=== PATIENT | male | born 1980 | race African-American/Black ===

== ENCOUNTER 2018-08-18 14:47 | Emergency (ER) | payer OTHER ==
[2018-08-18 15:08] VITALS: BP 146/90
--- NOTE | 2018-08-18 16:33 | ED Physician Documentation ---
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 and dx ear irriation and given a steroids sx have persisted and now he has no drainage no further care for intervening 6 or 7 months no fever cough Review of Systems Constitutional: denies: Fever Ears: reports: Ear pain Throat: denies: Sore throat Respiratory: denies: Cough PD PAST MEDICAL HISTORY - Present Medications Home Medications: Ambulatory Orders Medication Instructions Recorded Confirmed Amoxicillin 500 mg PO Q8H #30 capsule 08/18/18 Ofloxacin 10 drops OT DAILY #1 bottle 08/18/18 - Allergies Allergies/Adverse Reactions: Allergies Allergy/AdvReac Type Severity Reaction Status Date / Time No Known Drug Allergies Allergy Verified 08/18/18 15:08 PD ED PE NORMAL - Vitals Vital signs reviewed: Yes - HEENT HEENT: No: Ears normal (R TM erythematous with purlent fluid draining from upper anterior TM) - Cardiac Cardiac: RRR - Respiratory Respiratory: No respiratory distress Results - Vitals Vitals: Vital Signs - 24 hr 08/18/18 15:04 Temperature 36.4 C L Heart Rate 63 Respiratory 16 Rate Blood Pressure 146/90 H O2 Saturation 99 Oxygen O2 Source Room air PD MEDICAL DECISION MAKING - Sepsis Event Vital Signs: Vital Signs - 24 hr 08/18/18 15:04 Temperature 36.4 C L Heart Rate 63 Respiratory 16 Rate Blood Pressure 146/90 H O2 Saturation 99 Oxygen O2 Source Room air Departure - Departure Disposition: 01 Home, Self Care Clinical Impression: Perforated tympanic membrane Qualifiers: Laterality: right Qualified Code(s): H72.91 - Unspecified perforation of tympanic membrane, right ear Otitis media Qualifiers: Otitis media type: suppurative Chronicity: acute Laterality: right Recurrence: not specified as recurrent Spontaneous tympanic membrane rupture: with spontaneous rupture Qualified Code(s): H66.011 - Acute suppurative otitis media with spontaneous rupture of ear drum, right ear Condition: Good Instructions: ED Rupture Eardrum Infec Follow-Up: [facility] [Provider Group] [facility] [Provider Group] Prescriptions: Amoxicillin 500 mg PO Q8H #30 capsule Ofloxacin 10 drops OT DAILY #1 bottle Forms: Activity restrictions
== END 2018-08-18 16:55 | disposition home or self-care (01) ==
LOC: ED 14:47
DX: H66.011 Acute suppurative otitis media with spontaneous rupture of ear drum, right ear (principal); H72.91 Unspecified perforation of tympanic membrane, right ear
CPT/HCPCS: 99282; 99283

== ENCOUNTER 2019-01-05 01:22 | Emergency (ER) | payer OTHER ==
[2019-01-05] MEDS ORDERED: ALBUTEROL NEB 2.5 MG/3 ML INH STA (01:32)
[2019-01-05] MEDS ORDERED: DEXAMETHASONE 10 MG/ML VIAL PO STA (01:41)
[2019-01-05 01:44] VITALS: BP 148/96
[2019-01-05] MEDS ORDERED: CHERRY SYRUP 10 ML UDC PO ONE (02:13)
--- NOTE | 2019-01-05 02:17 | ED Physician Documentation ---
PD HPI DYSPNEA - Stated complaint Stated Complaint: SOA - Chief complaint Chief Complaint: Resp - Additional information Additional information: 38-year-old male presents the emergency department for evaluation of wheezing and cough over the past several months. The patient gets this intermittently. No specific triggering factors. No relieving factors. The patient's symptoms are worse at night. The patient denies chest pain, fevers, URI symptoms or peripheral edema. Presently symptoms are described as moderate. No other associated symptoms Review of Systems Constitutional: denies: Fever, Chills Eyes: denies: Discharge Ears: denies: Ear pain Nose: denies: Congestion Throat: denies: Sore throat Cardiac: denies: Chest pain / pressure Respiratory: reports: Dyspnea, Wheezing GI: denies: Abdominal Pain : denies: Dysuria Musculoskeletal: denies: Neck pain Neurologic: denies: Generalized weakness PD PAST MEDICAL HISTORY - Past Medical History Past Medical History: No Cardiovascular: None Respiratory: None Neuro: None Endocrine/Autoimmune: Other GI: None : Kidney stones HEENT: None Psych: None Musculoskeletal: None Derm: None Other Past Medical History: parathyroid - Past Surgical History Past Surgical History: Yes Ortho: Shoulder arthroplasty, Other - Present Medications Home Medications: Ambulatory Orders Medication Instructions Recorded Confirmed RX: Albuterol Sulf [Ventolin Hfa 1 - 2 puffs INH Q4HR PRN #1 inhaler 01/05/19 Inhaler] - Allergies Allergies/Adverse Reactions: Allergies Allergy/AdvReac Type Severity Reaction Status Date / Time No Known Drug Allergies Allergy Verified 01/05/19 01:27 - Social History Does the pt smoke?: No Smoking Status: Never smoker Does the pt drink ETOH?: No Does the pt have substance abuse?: No - Immunizations Immunizations are current?: Yes PD ED PE NORMAL - General General: Alert and oriented X 3, No acute distress - HEENT HEENT: Atraumatic, PERRL, EOMI, Ears normal - Cardiac Cardiac: RRR, Strong equal pulses - Respiratory Respiratory: No respiratory distress. No: Clear bilaterally (Bilateral wheezing) - Derm Derm: Normal color - Extremities Extremities: No deformity, No edema - Neuro Neuro: Alert and oriented X 3, Normal speech - Psych Psych: Normal affect Results - Vitals Vitals: Vital Signs - 24 hr 01/05/19 01/05/19 01/05/19 01:24 01:43 01:46 Temperature 36.0 C L Heart Rate 62 56 L 56 L Respiratory 18 20 20 Rate Blood Pressure 153/102 H 148/96 H O2 Saturation 97 99 Oxygen O2 Source Room air PD MEDICAL DECISION MAKING - ED course ED course: The patient has acute bronchospasms in the emergency department and the patient had good improvement with albuterol. The patient was given a dose of Decadron and a prescription for an inhaler. The patient will follow up with medical at [facility] for ongoing management. The patient will return to the emergency department for any worsening or any concerns Departure - Departure Disposition: 01 Home, Self Care Clinical Impression: Bronchospasm, acute Condition: Good Instructions: ED Asthma Acute Ch Follow-Up: JOAQUIN Trejo [Provider Group] - Within 1 week (Please ask primary care to arrange for an outpatient pulmonary function test) Prescriptions: RX: Albuterol Sulf [Ventolin Hfa Inhaler] 1 - 2 puffs INH Q4HR PRN #1 inhaler PRN Reason: Shortness Of Air/Wheezing Comments: Please return for worsening symptoms or any concerns Discharge Date/Time: 01/05/19 02:29
== END 2019-01-05 02:29 | disposition home or self-care (01) ==
LOC: ED 01:22
DX: J98.01 Acute bronchospasm (principal)
CPT/HCPCS: 94640; 94664; 99283; A9270

== ENCOUNTER 2019-06-20 12:05 | Emergency (ER) | payer OTHER ==
[2019-06-20 12:33] LABS: BASOPHILS # (AUTO) 0.1 10^3/uL (0.0-0.1); BASOPHILS % (AUTO) 0.5 %; EOSINOPHILS # (AUTO) 0.6 10^3/uL (0.0-0.7); EOSINOPHILS % (AUTO) 5.7 %; HGB - HEMOGLOBIN 15.2 g/dL (14.0-18.0); LYMPHOCYTES # (AUTO) 2.7 10^3/uL (1.5-3.5); MEAN CORPUSCULAR HEMOGLOBIN 31.8 pg (27.0-31.0); MEAN CORPUSCULAR HGB CONC 33.2 g/dL (32.0-36.0); MEAN CORPUSCULAR VOLUME 95.8 fL (80.0-94.0); MEAN PLATELET VOLUME 11.6 fL (7.4-11.4); MONOCYTES # (AUTO) 0.8 10^3/uL (0.0-1.0); MONOCYTES % (AUTO) 8.2 %; NEUTROPHILS # (AUTO) 5.8 10^3/uL (1.5-6.6); NEUTROPHILS % (AUTO) 58.2 %; PLT - PLATELET COUNT 188 10^3/uL (130-450); RED BLOOD COUNT 4.78 10^6/uL (4.70-6.10); RED CELL DISTRIBUTION WIDTH 11.6 % (12.0-15.0)
--- NOTE | 2019-06-20 12:35 | ED Physician Documentation ---
History of Present Illness - Stated complaint Stated Complaint: VOMITING,ABD PX, RT SIDED PX - Chief complaint Chief Complaint: Abd Pain - Additonal information Additional information: This is a 39-year-old male with a history of a kidney stone in the past, and possible hyperparathyroidism, who presents with left flank pain rating to his lower abdomen. Patient states last night he began having an ache in his lower back which he thought was muscle related, but this morning became sharper and associated with vomiting. His pain is now radiating down to his left lower abdomen. No penile or testicular pain. He has not noticed any blood in his urine. No fever, no dysuria, he did have some hesitancy earlier this morning. In the past he passed a 3 mm stone without issue, however he was going to have surgery due to other stones in his kidneys that were seen on CT, however his urologist reportedly found them to be calcifications and did not need removal. Review of Systems Constitutional: denies: Fever Cardiac: denies: Chest pain / pressure Respiratory: denies: Dyspnea GI: reports: Abdominal Pain : reports: Hesitancy. denies: Testicular pain Neurologic: denies: Generalized weakness PD PAST MEDICAL HISTORY - Past Medical History Cardiovascular: None Respiratory: None Neuro: None Endocrine/Autoimmune: Other GI: None : Kidney stones HEENT: None Psych: None Musculoskeletal: None Derm: None - Past Surgical History Past Surgical History: Yes Ortho: Shoulder arthroplasty, Other - Present Medications Home Medications: Ambulatory Orders Medication Instructions Recorded Confirmed RX: Albuterol Sulf [Ventolin Hfa 1 - 2 puffs INH Q4HR PRN #1 inhaler 01/05/19 Inhaler] Oxycodone HCl/Acetaminophen 1 - 2 each PO Q6H PRN #14 tablet 06/20/19 [Percocet 5-325 mg Tablet] RX: Ibuprofen 600 mg PO Q6H PRN #30 tablet 06/20/19 Tamsulosin [Flomax] 0.4 mg PO DAILY #14 capsule 06/20/19 - Allergies Allergies/Adverse Reactions: Allergies Allergy/AdvReac Type Severity Reaction Status Date / Time No Known Drug Allergies Allergy Verified 01/05/19 01:27 - Social History Does the pt smoke?: No Smoking Status: Never smoker Does the pt drink ETOH?: No Does the pt have substance abuse?: No - Immunizations Immunizations are current?: Yes PD ED PE NORMAL - Vitals Vital signs reviewed: Yes - General General: Alert and oriented X 3 - HEENT HEENT: PERRL - Cardiac Cardiac: RRR - Respiratory Respiratory: No respiratory distress - Abdomen Abdomen: Soft, Non tender, Non distended - Back Back: No CVA TTP - Derm Derm: Warm and dry - Extremities Extremities: No deformity - Neuro Neuro: Alert and oriented X 3 - Psych Psych: Normal mood, Normal affect Results - Vitals Vitals: Oxygen O2 Source Room air - Labs Labs: Laboratory Tests 06/20/19 06/20/19 06/20/19 12:23 12:23 13:16 WBC 10.0 RBC 4.78 Hgb 15.2 Hct 45.8 MCV 95.8 H MCH 31.8 H MCHC 33.2 RDW 11.6 L Plt Count 188 MPV 11.6 H Neut # (Auto) 5.8 Lymph # (Auto) 2.7 [place] # (Auto) 0.8 Eos # (Auto) 0.6 Baso # (Auto) 0.1 Absolute Nucleated RBC 0.00 Nucleated RBC % 0.0 Sodium 143 Potassium 3.9 Chloride 104 Carbon Dioxide 28 Anion Gap 11.0 BUN 8 Creatinine 0.9 Estimated GFR (MDRD) 114 Glucose 113 H Calcium 9.2 Total Bilirubin 0.9 AST 20 ALT 16 Alkaline Phosphatase 74 Total Protein 7.6 Albumin 4.1 Globulin 3.5 Albumin/Globulin Ratio 1.2 Lipase 34 Urine Color YELLOW Urine Clarity CLEAR Urine pH 6.0 Ur Specific [place] 1.020 Urine Protein NEGATIVE Urine Glucose (UA) NEGATIVE Urine Ketones NEGATIVE Urine Occult Blood NEGATIVE Urine Nitrite NEGATIVE Urine Bilirubin NEGATIVE Urine Urobilinogen 0.2 (NORMAL) Ur Leukocyte Esterase NEGATIVE Ur Microscopic Review NOT INDICATED Urine Culture Comments NOT INDICATED PD MEDICAL DECISION MAKING - ED course Complexity details: considered differential (Nephrolithiasis/renal colic, UTI, pyelonephritis, muscle strain, enteritis, testicular torsion) ED course: On exam patient is uncomfortable but not initial vital signs are unremarkable. Patient's abdomen is benign, he has no testicular penile pain, pain is in his left flank rating towards the front of his abdomen, and feels similar to past kidney stone. Labs were obtained and patient was given 15 mg of Toradol As well as Zofran. CBC is unremarkable, CMP and lipase also unremarkable. Urinalysis shows no hematuria signs of infection. On repeat examination patient is well- appearing states his pain is completely resolved with the Toradol. I discussed imaging options with the patient, he would prefer to defer imaging at this time, and try expectant care for what is likely a kidney stone with hydration, Flomax, Ibuprofen, and a small number of Percocet if needed for breakthrough pain. If he has worsening symptoms, any testicular pain, fever, pain that does not improve, or new abdominal pain, he will return to the emergency department. Otherwise he will follow-up with his primary care provider and establish with urology. Patient was discharged home in good condition. Departure - Departure Disposition: , Self Care Clinical Impression: Renal colic on left side Condition: Good Instructions: ED Stone Renal W Colic Follow-Up: Your,urologist [Other] Prescriptions: RX: Ibuprofen 600 mg PO Q6H PRN #30 tablet PRN Reason: Pain Oxycodone HCl/Acetaminophen [Percocet 5-325 mg Tablet] 1 - 2 each PO Q6H PRN #14 tablet PRN Reason: pain Tamsulosin [Flomax] 0.4 mg PO DAILY #14 capsule Comments: You likely have a kidney stone, please drink plenty of water, take the medic ations as prescribed, and follow-up with your urologist. If you have worsening symptoms, persistent vomiting, fever, or any other concerning symptoms please return to the emergency department. Discharge Date/Time: 06/20/19 15:37
[2019-06-20] MEDS ORDERED: KETOROLAC 30 MG/ML VIAL IVP STA (13:07)
[2019-06-20] MEDS ORDERED: ONDANSETRON 4 MG/2 ML VIAL IVP STA (13:07)
[2019-06-20 13:08] LABS: ALBUMIN 4.1 g/dL (3.2-5.5); ALBUMIN/GLOBULIN RATIO 1.2 (1.0-2.2); BILIRUBIN,TOTAL 0.9 mg/dL (0.2-1.0); CALCIUM 9.2 mg/dL (8.5-10.3); CREATININE 0.9 mg/dL (0.6-1.2); TOTAL PROTEIN 7.6 g/dL (6.7-8.2)
[2019-06-20 13:34] LABS: BILIRUBIN,URINE NEGATIVE (NEGATIVE); GLUCOSE, URINE (UA) NEGATIVE (NEGATIVE); KETONES,URINE (UA) NEGATIVE (NEGATIVE); LEUKOCYTE ESTERASE, URINE NEGATIVE (NEGATIVE); NITRITE,URINE NEGATIVE (NEGATIVE); OCCULT BLOOD,URINE NEGATIVE (NEGATIVE); PROTEIN,URINE NEGATIVE (NEGATIVE); UROBILINOGEN,URINE 0.2 (NORMAL) E.U./dL (NORMAL)
[2019-06-20 13:36] LABS: CLARITY,URINE CLEAR (CLEAR)
[2019-06-20 15:38] VITALS: BP 139/85
== END 2019-06-20 15:37 | disposition home or self-care (01) ==
LOC: ED 12:05
DX: N23 Unspecified renal colic (principal); Z87.442 Personal history of urinary calculi
CPT/HCPCS: 36415; 80053; 81001; 81003; 83690; 85025; 87086; 96374; 99284